=== PATIENT | male | born 1960 | race Caucasian/White ===

== ENCOUNTER 2017-12-10 09:08 | Outpatient (CLI) | payer BC ==
--- NOTE | 2017-12-10 13:45 | CT ---
CT ABDOMEN AND PELVIS WITH ORAL AND IV CONTRAST: HISTORY: Abdominal pain, unspecified. FINDINGS: The lung bases are clear. There is a tiny, 5 mm, low density lesion in the right lobe of the liver, too small to characterized, but statistically likely to represent a benign finding. No calcified gal lstones are seen. The spleen, pancreas, adrenal glands, and kidneys appear normal. No free air, free fluid, or lymphadenopathy is seen in the abdomen or pelvis. There are vascular raghav cifications without evidence of aneurysmal dilatation of the abdominal aorta. A circumaortic left re nal vein is present. There is colonic diverticulosis without evidence of diverticulitis. There is a bilateral small, fat-containing inguinal hernia. There are degenerative changes in the spine. IMPRESSION: Colonic diverticulosis. POS: [facility]
== END 2017-12-10 09:09 | disposition home or self-care (01) ==
LOC: SCSCT 09:08
PROVIDERS: ATTEND Specialist
DX: R10.9 Unspecified abdominal pain (principal); K57.30 Diverticulosis of large intestine without perforation or abscess without bleeding
CPT/HCPCS: 74177

== ENCOUNTER 2020-10-29 07:22 | Outpatient (CLI) | payer OTHER | END 2020-10-29 07:23 | disposition home or self-care (01) | LOC: BICMRI 07:22 | PROVIDERS: ATTEND Internal Medicine | DX: M47.26 Other spondylosis with radiculopathy, lumbar region (principal); I71.4 Abdominal aortic aneurysm, without rupture | CPT/HCPCS: 72148 ==

== ENCOUNTER 2021-03-23 10:18 | Outpatient (CLI) | payer BC ==
[2021-03-23 11:36] LABS: Hemoglobin 16.1 g/dL (13.5-17.5); Mean Corpuscular HGB CONC 33.6 g/dL (32.0-36.0); Mean Corpuscular Hemoglobin 31.1 pg (27.0-33.0); Mean Corpuscular Volume 92.5 fl (81.2-95.1); Mean Platelet Volume 9.6 fl (7.4-10.4); Platelet Count 240 10x3/uL (150-450); RBC Distribution Width 12.7 % (11.5-14.5); Red Blood Cell (RBC) Count 5.18 10x6/uL (4.32-5.72)
[2021-03-23 11:59] LABS: Anion Gap 13 mmol/L (10-20); BUN (Urea Nitrogen) 10 mg/dL (8.4-25.7); Calc. Creatinine Clearance 0 mL/min (70-130); Calcium 9.3 mg/dL (7.8-10.44); Carbon Dioxide 25 mmol/L (22-29); Chloride 104 mmol/L (98-107); Glucose 94 mg/dL (70-105); Potassium 4.2 mmol/L (3.5-5.1); Sodium 138 mmol/L (136-145)
[2021-03-23 17:23] LABS: SARS-CoV-2 PCR by NAA Not Detected (NotDetected)
== END 2021-03-23 10:19 | disposition home or self-care (01) ==
LOC: LABBT 10:18
PROVIDERS: ATTEND Neurological Surgery
DX: Z01.818 Encounter for other preprocedural examination (principal); M43.16 Spondylolisthesis, lumbar region; Z20.822 Contact with and (suspected) exposure to COVID-19
CPT/HCPCS: 80048; 85027; 93005; 93010; U0003; U0005

== ENCOUNTER 2021-03-28 07:03 | Observation (INO) | payer BC ==
[2021-03-22 11:21] VITALS: BMI 38.7
[2021-03-28] MEDS ORDERED: ceFAZolin Sodium (SDC) 2 GM/100 ML BAG ONE (08:05)
[2021-03-28] MEDS ORDERED: Midazolam HCl 2 mg/2 ml Vial ONE (10:11)
[2021-03-28] MEDS ORDERED: HYDROmorphone 2 MG/ML VIAL ONE ×2 (10:16→13:05)
[2021-03-28] MEDS ORDERED: Fentanyl 100 MCG/2 ML VIAL ONE ×2 (10:16→12:58)
[2021-03-28] MEDS ORDERED: Glycopyrrolate 0.2 MG/ML 5 ML SYRINGE ONE (10:25)
[2021-03-28] MEDS ORDERED: Ondansetron PF 4 MG/2 ML Vial ONE (10:25)
[2021-03-28] MEDS ORDERED: Lidocaine 1% PF 5 ML VIAL ONE (10:25)
[2021-03-28] MEDS ORDERED: ePHEDrine 50 MG/ML VIAL ONE (10:25)
[2021-03-28] MEDS ORDERED: Rocuronium Bromide 10 MG/ML (10ML VIAL) ONE (10:25)
[2021-03-28] MEDS ORDERED: PHENYLEPHRINE-NS 100 MCG/ML 10 ML SYRINGE ONE ×2 (10:25→11:37)
[2021-03-28] MEDS ORDERED: Ketorolac Tromethamine 30 MG/ML VIAL ONE (10:25)
[2021-03-28] MEDS ORDERED: Dexamethasone 20 MG/5 ML VIAL ONE (10:25)
[2021-03-28] MEDS ORDERED: PROPOFOL 200 MG/20 ML VIAL ONE (10:25)
[2021-03-28] MEDS ORDERED: Promethazine HCl 25 MG/ML VIAL IM PRN ×2 (12:41→13:15)
[2021-03-28] MEDS ORDERED: Promethazine HCl 25 MG/ML VIAL IVPB PRN (12:41)
[2021-03-28] MEDS ORDERED: Ondansetron HCl/PF 4 MG/2 ML Vial IVP PRN (12:41)
[2021-03-28] MEDS ORDERED: HYDROmorphone 2 MG/ML VIAL SLOW IVP PRN (12:41)
[2021-03-28] MEDS ORDERED: Milk Of Magnesia 30 ML UDCUP PO PRN (13:15)
[2021-03-28] MEDS ORDERED: Ondansetron PF 4 MG/2 ML Vial IM PRN (13:15)
[2021-03-28] MEDS ORDERED: Mag-Al 1200 mg/1200 mg/30 ML UDCUP PO PRN (13:15)
[2021-03-28] MEDS ORDERED: Promethazine 25 MG TAB PO PRN (13:15)
[2021-03-28] MEDS ORDERED: Promethazine HCl 12.5 MG SUPP PR PRN (13:15)
[2021-03-28] MEDS ORDERED: traMADol HCl 50 MG TAB PO PRN ×2 (13:15)
[2021-03-28] MEDS ORDERED: diphenhydrAMINE 25 MG CAP PO PRN (13:15)
[2021-03-28] MEDS ORDERED: diphenhydrAMINE 50 MG/ML VIAL IVP PRN (13:15)
[2021-03-28] MEDS ORDERED: Acetaminophen/Codeine 30-300mg Tablet PO PRN (13:15)
[2021-03-28] MEDS ORDERED: Morphine 4 MG/ML VIAL SLOW IVP PRN ×2 (13:30)
[2021-03-28] MEDS ORDERED: Morphine 2 MG/ML VIAL SLOW IVP PRN (13:30)
[2021-03-28] MEDS ORDERED: Tamsulosin HCl 0.4 MG CAP ONE (14:47)
[2021-03-28] MEDS ORDERED: CEFAZOLIN 2 GM, Admixture Fee 1 EACH in Sodium Chloride 0.9% 100 ML IVPB SCH (16:00)
[2021-03-28] MEDS: Acetaminophen/Codeine 30-300mg Tablet PO PRN ×2 (16:49→20:09)
[2021-03-28] MEDS: Sodium Chloride 0.9% 1,000 ML IV SCH (16:51)
[2021-03-28] MEDS: CEFAZOLIN 2 GM, Admixture Fee 1 EACH in Sodium Chloride 0.9% 100 ML IVPB SCH (18:31)
[2021-03-28] MEDS: Gabapentin 300 MG CAP PO SCH (20:09)
[2021-03-28] MEDS: tiZANidine HCl 4 MG TAB PO PRN (20:09)
[2021-03-28] MEDS ORDERED: Atorvastatin Calcium 40 MG TAB PO SCH (21:00)
[2021-03-28] MEDS ORDERED: Lisinopril 10 MG TAB PO SCH (21:00)
[2021-03-29] MEDS: CEFAZOLIN 2 GM, Admixture Fee 1 EACH in Sodium Chloride 0.9% 100 ML IVPB SCH (02:59)
[2021-03-29] MEDS: Acetaminophen/Codeine 30-300mg Tablet PO PRN ×2 (02:59→09:13)
[2021-03-29] MEDS: Sodium Chloride 0.9% 1,000 ML IV SCH (03:26)
[2021-03-29] MEDS ORDERED: Tamsulosin HCl 0.4 MG CAP PO SCH (06:00)
[2021-03-29] MEDS ORDERED: Montelukast Sodium 10 mg Tablet PO SCH (09:00)
[2021-03-29] MEDS: Gabapentin 300 MG CAP PO SCH (09:50)
[2021-03-29] MEDS: tiZANidine HCl 4 MG TAB PO PRN (09:51)
[2021-03-29] MEDS ORDERED: CEFAZOLIN 2 GM in Premix Bag 1 BAG IVPB SCH (10:00)
[2021-03-29 11:34] VITALS: BP 108/68; TEMP 97.7
== END 2021-03-29 10:00 | disposition home or self-care (01) ==
LOC: SDC 07:03 → SURG A 13:10
PROVIDERS: ADMIT Neurological Surgery; ATTEND Neurological Surgery
PROC: 0SG1071 Fusion of 2 or more Lumbar Vertebral Joints with Autologous Tissue Substitute, Posterior Approach, Posterior Column, Open Approach (ICD-10-PCS; principal; 2021-03-28)
DX: M51.36 Other intervertebral disc degeneration, lumbar region (principal); M48.062 Spinal stenosis, lumbar region with neurogenic claudication; M43.16 Spondylolisthesis, lumbar region; I10 Essential (primary) hypertension; F17.210 Nicotine dependence, cigarettes, uncomplicated; Z79.899 Other long term (current) drug therapy
CPT/HCPCS: 76000; 96374; 96375; 96376; C1713; C1768; G0378; J0690; J1100; J1170; J1885; J2250; J2270; J2405; J2704; J3010; J3370; J3490

== ENCOUNTER 2021-04-14 12:22 | Outpatient (CLI) | payer BC | END 2021-04-14 12:23 | disposition home or self-care (01) | LOC: TBSIIMAG 12:22 | PROVIDERS: ATTEND Neurological Surgery | DX: M43.16 Spondylolisthesis, lumbar region (principal); M47.816 Spondylosis without myelopathy or radiculopathy, lumbar region; Z98.890 Other specified postprocedural states | CPT/HCPCS: 72100 ==

== ENCOUNTER 2021-06-06 10:31 | Outpatient (CLI) | payer BC | END 2021-06-06 10:32 | disposition home or self-care (01) | LOC: TBSIIMAG 10:31 | PROVIDERS: ATTEND Neurological Surgery | DX: M51.36 Other intervertebral disc degeneration, lumbar region (principal); Z98.890 Other specified postprocedural states | CPT/HCPCS: 72100 ==

== ENCOUNTER 2023-10-22 13:58 | Outpatient (CLI) | payer BC ==
[~2023-10-22 13:58] MED LIST: Iopamidol 370 76% 100 ML VIAL ONE
== END 2023-10-22 13:59 | disposition home or self-care (01) ==
LOC: BICCT 13:58
PROVIDERS: ATTEND Internal Medicine Cardiovascular Disease
DX: I71.40 Abdominal aortic aneurysm, without rupture, unspecified (principal); I73.9 Peripheral vascular disease, unspecified; K57.30 Diverticulosis of large intestine without perforation or abscess without bleeding; I70.8 Atherosclerosis of other arteries; I70.201 Unspecified atherosclerosis of native arteries of extremities, right leg; I70.202 Unspecified atherosclerosis of native arteries of extremities, left leg
CPT/HCPCS: 74175; 82565; Q9967